=== PATIENT | female | born 1980 | race Caucasian/White ===

== ENCOUNTER 2022-10-11 17:04 | Emergency (ER) | payer BC, OTHER ==
[2022-10-11 17:53] VITALS: TEMP 97.8
--- NOTE | 2022-10-11 17:53 | ED ---
Extremity Problem HPI - General Chief complaint: Extremity Problem,Nontraumatic Stated complaint: [facility] - Hand Pain Time Seen by Provider: 10/11/22 17:50 Source: patient, RN notes reviewed Mode of arrival: ambulatory Limitations: no limitations - History of Present Illness Initial comments: This is a 41 year old female who presents to the emergency department for left hand pain. 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 Pain has been present for 2 days. Denies anything falling on the hand, believes the pain to be from repetitive motion at work. She has not taken anything to treat the pain. Denies any fevers, chills, sore throat, cough, dyspnea, chest pain, palpitations, abdominal pain, nausea, vomiting, diarrhea, back pain, or headaches. MD Complaint: extremity pain Onset/Timin -: days(s) Location: left, upper extremity History of Same: No - Related Data Home Medications Medication Instructions Recorded Confirmed amLODIPine [Norvasc] 10 mg PO DAILY 07/07/15 07/07/15 lisinopriL [Prinivil] 20 mg PO DAILY 07/07/15 07/07/15 Previous Rx's Medication Instructions Recorded amLODIPine [Norvasc] 10 mg PO DAILY 30 Days tablet 07/07/15 clindamycin HCL [Clindamycin HCl] 300 mg PO Q12HR 10 Days cap 07/07/15 lisinopriL [Prinivil] 20 mg PO DAILY 30 Days tablet 07/07/15 predniSONE 50 mg PO DAILY 5 Days #5 tab 10/11/22 Allergies Allergy/AdvReac Type Severity Reaction Status Date / Time No Known Allergies Allergy Verified 10/11/22 17:53 Review of Systems ROS Statement: Those systems with pertinent positive or pertinent negative responses have been documented in the HPI. ROS Other: All systems not noted in ROS Statement are negative. Past Medical History Past Medical History: Hypertension History of Any Multi-Drug Resistant Organisms: None Reported Past Surgical History: No Surgical Hx Reported Past Psychological History: No Psychological Hx Reported Past Alcohol Use History: None Reported Past Drug Use History: None Reported General Exam General appearance: alert, in no apparent distress Head exam: Present: atraumatic, normocephalic, normal inspection Respiratory exam: Present: normal lung sounds bilaterally. Absent: respiratory distress, wheezes, rales, rhonchi, stridor Cardiovascular Exam: Present: regular rate, normal rhythm, normal heart sounds. Absent: systolic murmur, diastolic murmur, rubs, gallop, clicks Extremities exam: Present: other (Full active and passive range of motion of the left hand, no obvious swelling, ecchymosis, or erythema. 2+ radial pulses and capillary refill less than 1 second.) Neurological exam: Present: alert, oriented X3, CN II-XII intact Psychiatric exam: Present: normal affect, normal mood Skin exam: Present: warm, dry, intact, normal color. Absent: rash Course Vital Signs 10/11/22 17:50 Temperature 97.8 F Pulse Rate 74 Respiratory 20 Rate Blood Pressure 170/90 O2 Sat by Pulse 97 Oximetry Medical Decision Making - Medical Decision Making This is a 41-year-old female who presents to the emergency department for left hand pain. Was pt. sent in by a medical professional or institution? @ -[facility] Did you speak to anyone other than the patient for history? @ -No Did you review nursing and triage notes? @ -Agree, accurate with regards to the patient's symptoms. Were old charts reviewed? @ -No Differential Diagnosis? @ -Fracture, joint subluxation, arthritis, ligament tears, tendinitis, tenosynovitis, this is not meant to be an all-inclusive list. X-rays interpreted by me (1pt min.)? @ -My interpretation of the XR of the left hand identifies no acute fractures or dislocations. What testing was considered but not performed? (CT, X-rays, U/S, labs)? Why? @ -None What meds were considered but not given? Why? @ -None Did you discuss the management of the patient with other professionals? @ -No Did you reconcile home meds? @ -No Was smoking cessation discussed for >3mins.? @ -No Was critical care preformed (if so, how long)? @ -No Were there social determinants of health that impacted care today? How? (Homelessness, low income, unemployed, alcoholism, drug addiction, transportation, low edu. Level, literacy, decrease access to med. care, skilled nursing, rehab)? @ -No Was there de-escalation of care discussed even if they declined? (Discuss DNR or withdrawal of care, Hospice)? @ -No What co-morbidities impacted this encounter? (DM, HTN, Smoking, COPD, CAD, Cancer, CVA, Hep., AIDS, mental health diagnosis, sleep apnea, morbid obesity)? @ -None Was patient admitted / discharged? @ -Discharged. X-rays obtained with no acute findings noted. She was given a dose of prednisone and a starter pack for Tylenol #3 in the emergency department. Symptoms consistent with a tendinitis or overuse injury. Prescription for 5 day course of prednisone provided with dosing instructions reviewed. Advised taking this with Tylenol and avoiding other anti- inflammatories with the prednisone. Recommended she alternate with ice and heat to figure out which one she finds most beneficial. Information for orthopedic follow-up provided as well in the event symptoms do not improve. Drug Therapy requiring intensive monitoring for toxicity (Heparin, Nitro, Insulin, Cardizem)? @ -None Were any procedures done? @ -None Diagnosis/symptom? @ -Left hand pain Acute, or Chronic, or Acute on Chronic? @ -Acute Uncomplicated (without systemic symptoms) or Complicated (systemic symptoms)? @ -Uncomplicated Side effects of treatment? @ -None Exacerbation, Progression, or Severe Exacerbation] @ -Not applicable Poses a threat to life or bodily function? @ -Impacting her ability to work due to the pain. Return precautions reviewed in depth, the patient is instructed to return to the emergency department with any new, worsening, or concerning symptoms. Patient verbalized understanding. This case was discussed in detail with the attending ED physician. Presentation, findings, and treatment plan discussed in detail as well. - Radiology Data Radiology results: report reviewed, image reviewed Disposition Clinical Impression: Left hand pain Disposition: HOME SELF-CARE Instructions (If sedation given, give patient instructions): Arthralgia (ED) Additional Instructions: Return to the emergency department with any new, worsening, or concerning symptoms. Take the prednisone daily for 5 days. You can try alternating with ice and heat to see whichever one is more effective. Contact Dr. Amor, orthopedics, if symptoms do not improve. You can try wrapping your hand with an Sourav bandage or purchasing an [id number] wrist brace as well. Follow up with your primary care provider in 1-2 days. Prescriptions: predniSONE 50 mg PO DAILY 5 Days #5 tab Is patient prescribed a controlled substance at d/c from ED?: No Referrals: Arvind Merino MD [Primary Care Provider] - 1-2 days Jorge Amor DO [Doctor of Osteopathic Medicine] - 1-2 days
--- NOTE | 2022-10-11 18:53 | XR ---
EXAMINATION TYPE: XR hand complete LT DATE OF EXAM: 10/11/2022 6:24 PM INDICATION: Patient age:Female; 41 years old; Reason for study: Pain; COMPARISON: None TECHNIQUE: Frontal, lateral and oblique views of the left hand were obtained. FINDINGS: Normal alignment of the visualized joints. No acute osseous pathology is identified. No e vidence of soft tissue swelling. IMPRESSION: No acute osseous pathology.
[2022-10-11] MEDS ORDERED: ACET/COD 300 MG/30 MG STARTER PACK 6 TAB BTL PO STA (19:08)
[2022-10-11] MEDS ORDERED: predniSONE 50 MG TAB PO STA (19:08)
[2022-10-11 19:28] VITALS: BP 156/82; PULSE 72; RESP 18
== END 2022-10-11 19:28 | disposition home or self-care (01) ==
LOC: EC 17:04
DX: M79.642 Pain in left hand (principal); I10 Essential (primary) hypertension; Z79.899 Other long term (current) drug therapy
CPT/HCPCS: 73130; 99283; J7512